=== PATIENT | female | born 1995 | race Two or more races ===

== ENCOUNTER 2017-01-30 19:19 | Emergency (ER) | payer OTHER ==
[~2017-01-30] VITALS: Ht 170.2 cm; Wt 65.8 kg
--- NOTE | ~2017-01-30 | CT2 ---
[facility] A Service of [facility] RADIOLOGY TEXT RESULTS PATIENT: BUBBA BELL LOCATION: [facility] : [birth year] UNIT #: [id number] AGE: [address]: Gio Limon DO SEX: F ORDER DR: [id number] [facility] [address] [place], [place] [address] [id number] E MR#: [id number] #: [id number] NAME: BUBBA BELL : 1995 SEX: F STUDY DATE/TIME: 01/30/2017 23:08 UNIT: [facility] ROOM: STUDY DESCRIPTION: CT Abd and Pelv W Cont Attending Physician: Gio Limon D.O. Ordering Physician: Gio Limon D.O. Primary Care Physician: Primary Care Physician No MEDICAL IMAGING REPORT This report is preliminary unless electronic signature is present EXAM CT abdomen and pelvis with contrast, 01/30/2017 HISTORY 21-year-old female status post colonoscopy procedure on 01/28/2017 performed for anemia and blood in stool. She presents to the ED complaining of persistent nausea since her procedure. She also complains of a headache. TECHNIQUE CT examination of the abdomen and pelvis with IV contrast. GI contrast was not ordered. This CT examination was performed with one or more of the following radiation dose reduction techniques: automatic exposure control, adjustment of mA and/or kV according to patient size, and iterative reconstruction. FINDINGS ABDOMEN: No free air is seen within the abdomen, retroperitoneum or pelvis to suggest perforation following recent endoscopic procedure. Large volume stool is noted throughout the colon. Small bowel and colon are otherwise unremarkable. No evidence of acute appendicitis. Liver, pancreas and kidneys are normal in size and appearance. The spleen is mildly enlarged measuring about 13.9 cm. No gallbladder distension or bile duct dilatation. PELVIS: Uterus, adnexal regions, urinary bladder and rectum are within normal limits. Limited lung base images show no active disease in the lower chest. IMPRESSION [facility] A Service of [facility] RADIOLOGY TEXT RESULTS PATIENT: BUBBA BELL LOCATION: [facility] : [birth year] UNIT #: [id number] AGE: [address]: Gio Limon DO SEX: F ORDER DR: 1. No evidence of GI tract perforation or inflammation following recent colonoscopy procedure. Large volume stool is noted throughout the colon. Negative appendix. 2. Borderline splenomegaly. Spleen measures about 13.9 cm. 3. The remainder of the examination is negative. Dictated by... Tristian Cordero M.D. THIS IS AN ELECTRONICALLY VERIFIED REPORT Tristian Cordero M.D. at 01/31/2017 9:48 PM SILVINA/alessia TD: 01/31/2017 06:07 JOB #: [id number] MEDICAL IMAGING REPORT Page 1 of 1 COPY
--- NOTE | ~2017-01-30 | CT71 ---
[facility] A Service of [facility] RADIOLOGY TEXT RESULTS PATIENT: BUBBA BELL LOCATION: [facility] : 97 UNIT #: [id number] AGE: [address]: Gio Limon DO SEX: F ORDER DR: [id number] [facility] [address] [place], [place] [address] [id number] E MR#: [id number] Acc #: [id number] NAME: BUBBA BELL : 1995 SEX: F STUDY DATE/TIME: 01/30/2017 23:00 UNIT: [facility] ROOM: STUDY DESCRIPTION: CT Head Wo Contrast Attending Physician: Gio Limon D.O. Ordering Physician: Gio Limon D.O. Primary Care Physician: Primary Care Physician No MEDICAL IMAGING REPORT This report is preliminary unless electronic signature is present EXAM CT head, noncontrast, 01/30/2017 HISTORY 21-year-old female in the ED complaining of headache beginning earlier today. She has noted some nausea since a colonoscopy procedure 2 days ago. Blood in stool. TECHNIQUE CT examination of the head without IV contrast. This CT examination was performed with one or more of the following radiation dose reduction techniques: automatic exposure control, adjustment of mA and/or kV according to patient size, and iterative reconstruction. FINDINGS The examination is negative. No evidence of intracranial hemorrhage, mass, mass effect, cerebral edema, hydrocephalus or additional abnormality. IMPRESSION Negative head CT examination. Dictated by... Tristian Cordero M.D. THIS IS AN ELECTRONICALLY VERIFIED REPORT Tristian Cordero M.D. at 01/31/2017 9:48 PM SILVINA/alessia TD: 01/31/2017 06:05 JOB #: [id number] MEDICAL IMAGING REPORT [facility] A Service of [facility] RADIOLOGY TEXT RESULTS PATIENT: BUBBA BELL LOCATION: [facility] : 97 UNIT #: [id number] AGE: [address]: Gio Limon DO SEX: F ORDER DR: Page 1 of 1 COPY
[2017-01-30 21:30] LABS: BASOPHIL% 0.6 % (0-2.5); DIFF IND NO; EOSINOPHIL# 0.1 X10e3 (0-0.7); EOSINOPHIL% 0.8 % (0.0-7.0); HEMATOCRIT 33.4 % (35.0-45.0); HEMOGLOBIN 10.6 gm/dL (12.0-16.0); LYMPHOCYTE# 2.5 X10e3 (1.0-3.5); LYMPHOCYTE% 34.2 % (17.0-45.0); MEAN CORPUSCULAR HEMOGLOBIN 22.8 PG (28-34); MEAN CORPUSCULAR HGB CONC 31.7 g/dL (30-36); MEAN PLATELET VOLUME 7.7 FL (6.5-11.5); MONOCYTE# 0.7 X10e3 (0-1.0); MONOCYTE% 9.7 % (3.0-12.0); NEUTROPHIL# 4.1 X10e3 (1.5-7.1); NEUTROPHIL% 54.7 % (40-75); PLATELET COUNT 285 X10e3 (140-420); RED BLOOD COUNT 4.64 X10e (3.90-5.30); RED CELL DISTRIBUTION WIDTH 16.3 % (11.0-15.5); WHITE BLOOD COUNT 7.4 X10e3 (4.0-10.5)
[2017-01-30 21:55] LABS: PARTIAL THROMBOPLASTIN TIME 26.8 SECONDS (23.5-31.3); PROTHROMBIN TIME (PATIENT) 10.7 SECONDS (10.0-11.7)
[2017-01-30 22:21] LABS: ALBUMIN SERUM 4.1 g/dL (3.5-5.0); BILIRUBIN, DIRECT 0.1 mg/dL (0.0-0.2); BILIRUBIN,INDIRECT 0.4 mg/dL (0.0-0.9); BILIRUBIN,TOTAL 0.5 mg/dL (0.2-2.0); CALCIUM SERUM 8.9 mg/dL (8.4-10.2); CREATININE SERUM 0.5 mg/dL (0.6-1.4); GLOM FILT RATE Estimated 140.3 mL/min (>60); POTASSIUM 3.5 mmol/L (3.5-5.1); PROTEIN TOTAL SERUM 7.5 g/dL (6.0-8.3)
[2017-01-30 22:23] LABS: URINE SOURCE CLEAN CATCH
[2017-01-30 22:30] LABS: URINE APPEARANCE CLEAR; URINE BILIRUBIN NEG (NEG); URINE BLOOD NEG (NEG); URINE COLOR YELLOW; URINE GLUCOSE NEG (NEG); URINE KETONE NEG (NEG); URINE LEUKOCYTE ESTERASE NEG (NEG); URINE NITRATE NEG (NEG); URINE PROTEIN NEG (NEG); URINE SPECIFIC GRAVITY 1.008 (1.003-1.035); URINE UROBILINOGEN 0.2 MG/DL (NEG)
[2017-01-30 22:32] LABS: CULTURE INDICATED? NO
== END 2017-01-31 02:35 | disposition home or self-care (01) ==
LOC: CED 19:19
PROVIDERS: Emergency Medicine
DX: K62.5 Hemorrhage of anus and rectum (principal); R11.0 Nausea; D64.9 Anemia, unspecified
CPT/HCPCS: 36415; 70450; 74177; 80048; 80076; 81003; 83690; 84703; 85025; 85610; 85730; 86850; 86900; 86901; 96374; 96375; 99284; J1200; J2765; Q9967